=== PATIENT | male | born 1940 | race Caucasian/White ===

== ENCOUNTER → 2017-12-28 10:41 | Outpatient (CLI) | payer MEDICARE, BC, SELFPAY ==
[2017-12-28 10:47] LABS: Microscopic, Urine URINE MICROSCOPIC (MICROSCOPIC)
[2017-12-28 11:07] LABS: Basophils # 0.1 K/mm3 (0-0.2); Basophils % 1.4 % (0.1-2.0); Eosinophils # 0.2 K/mm3 (0.0-0.4); Eosinophils % 3.8 % (0.1-12.0); Hematocrit 46.7 % (42.0-52.0); Hemoglobin 14.3 g/dL (14.1-18.0); Lymphocytes # 1.4 K/mm3 (0.7-4.5); Lymphocytes % 24.3 K/mm3 (10-50); Mean Corpuscular HGB Conc 30.7 g/dL (31.8-35.4); Mean Corpuscular Hemoglobin 27.7 pg (27.0-31.2); Mean Corpuscular Volume 90.3 fl (80-94); Monocytes # 0.5 K/mm3 (0.1-1.0); Monocytes % 7.9 % (1.7-9.3); Neutrophils # 3.6 K/mm3 (1.8-7.8); Neutrophils % 62.7 % (37.0-80.0); Platelet Count 184 K/mm3 (142-424); Red Blood Count 5.16 M/mm3 (4.60-6.20); Red Cell Distribution Width 14.2 % (11.5-17.5); White Blood Count 5.8 K/mm3 (4.8-10.8)
[2017-12-28 11:17] LABS: Appearance,Urine CLEAR (Clear); Bilirubin,Urine Negative (Negative); Blood, Urine Negative (Negative); Color,Urine YELLOW (Yellow); Glucose,Urine (UA) Negative (Negative); Ketones,Urine Negative (Negative); Leukocyte Esterase,Urine Negative (Negative); Nitrate,Urine Negative (Negative); Protein,Urine Negative (Negative); Urobilinogen,Urine 0.2 EU/dl (0.2)
[2017-12-28 11:21] LABS: Creatinine,Urine Random 59 mg/dL (20-320)
[2017-12-28 11:29] LABS: Bacteria,Urine Trace /lpf
[2017-12-28 12:12] LABS: Albumin Level 3.5 gm/dL (3.4-5.0); Blood Urea Nitrogen 19 mg/dL (7-18); Calcium 9.1 mg/dL (8.5-10.1); Carbon Dioxide 25 mmol/L (21.0-32.0); Chloride 107 mmol/L (98-107); Creatinine,Serum 1.59 mg/dL (0.70-1.30); Estimated Glomerular Filt Rate 42 ml/min (>60); GFR (African American) 51 ML/MIN (>60); Glucose 125 mg/dL (74-106); Phosphorous 2.4 mg/dL (2.4-4.9); Sodium 144 mmol/L (136-145); Uric Acid 6.9 mg/dL (2.6-7.2)
[2017-12-29 19:21] LABS: Calcium, Ionized 5.4 mg/dL (4.5-5.6); Parathyroid Hormone Intact 72 pg/mL (15-65)
[2017-12-30 06:34] LABS: Vitamin D 25 Hydroxy 37.2 ng/mL (30.0-100.0)
== END ==
PROVIDERS: Visit Provider Internal Medicine Nephrology
DX: N18.3 Chronic kidney disease, stage 3 (moderate) (principal)
CPT/HCPCS: 36415; 80069; 81001; 82330; 82570; 82652; 83970; 84155; 84550; 85025

== ENCOUNTER → 2018-02-01 13:22 | Outpatient (POV) | payer MEDICARE, BC, SELFPAY | PROVIDERS: Visit Provider Internal Medicine Nephrology | DX: Z00.00 Encounter for general adult medical examination without abnormal findings (principal) ==

== ENCOUNTER → 2019-08-09 14:01 | Outpatient (CLI) | payer MEDICARE, BC, SELFPAY ==
[2019-08-09 15:35] LABS: Albumin Level 3.8 g/dl (3.5-5.0); Anion Gap 11.3 mEq/L (5-15); Blood Urea Nitrogen 22 mg/dl (9-20); Carbon Dioxide 30 mmol/L (22.0-30.0); Chloride 102 mmol/L (98-107); Estimated Glomerular Filt Rate 42 ml/min (>60); GFR (African American) 50 ML/MIN (>60); Glucose 93 mg/dl (74-100); Phosphorous 2.9 mg/dl (2.5-4.5); Potassium 4.3 mmoL/L (3.5-5.1); Sodium 139 mmol/L (136-145); Uric Acid 7.2 mg/dl (3.5-8.5)
[2019-08-11 12:34] LABS: Vitamin D 25 Hydroxy 34.2 ng/mL (30.0-100.0)
== END ==
PROVIDERS: Visit Provider Internal Medicine Nephrology
DX: N18.3 Chronic kidney disease, stage 3 (moderate) (principal)
CPT/HCPCS: 36415; 80069; 82652; 84550

== ENCOUNTER → 2019-08-17 09:20 | Outpatient (POV) | payer MEDICARE, BC, SELFPAY | PROVIDERS: PCP Internal Medicine Nephrology; Visit Provider Internal Medicine Nephrology | DX: Z00.00 Encounter for general adult medical examination without abnormal findings (principal) ==

== ENCOUNTER → 2020-03-12 11:04 | Outpatient (CLI) | payer MEDICARE, BC, SELFPAY ==
[2020-03-12 11:43] LABS: Basophils # 0.1 K/mm3 (0-0.2); Basophils % 1.6 % (0.1-2.0); Eosinophils # 0.2 K/mm3 (0.0-0.4); Eosinophils % 3.7 % (0.1-12.0); Hematocrit 49.1 % (42.0-52.0); Hemoglobin 15.8 g/dL (14.1-18.0); Lymphocytes # 1.6 K/mm3 (0.7-4.5); Lymphocytes % 29.5 % (10-50); Mean Corpuscular HGB Conc 32.3 g/dL (31.8-35.4); Mean Corpuscular Hemoglobin 29.6 pg (27.0-31.2); Mean Corpuscular Volume 91.9 fl (80-94); Mean Platelet Volume 8.7 fl (7.4-10.4); Monocytes # 0.4 K/mm3 (0.1-1.0); Monocytes % 6.6 % (1.7-9.3); Neutrophils # 3.2 K/mm3 (1.8-7.8); Neutrophils % 58.6 % (37.0-80.0); Platelet Count 162 K/mm3 (142-424); Red Blood Count 5.34 M/mm3 (4.60-6.20); Red Cell Distribution Width 13.9 % (11.5-17.5); White Blood Count 5.4 K/mm3 (4.8-10.8)
[2020-03-12 12:14] LABS: Creatinine,Urine Random 61 mg/dL (Not Estab.)
[2020-03-12 12:20] LABS: Microalbumin < 6.000 mg/L (0-16.7)
[2020-03-12 12:37] LABS: Chloride 102 mmol/L (98-107)
[2020-03-12 12:38] LABS: Potassium 4.4 mmoL/L (3.5-5.1); Sodium 140 mmol/L (136-145)
[2020-03-12 12:40] LABS: Alanine Aminotransferase 31 U/L (12-78); Albumin/Globulin Ratio 1.4 (1.1-1.8); Alkaline Phosphatase 85 U/L (38-126); Anion Gap 13.4 mEq/L (5-15); Aspartate Amino Transferase 28 U/L (17-59); Bilirubin,Total 1.2 mg/dl (0.2-1.3); Blood Urea Nitrogen 21 mg/dl (9-20); Carbon Dioxide 29 mmol/L (22.0-30.0); Estimated Glomerular Filt Rate 39 ml/min (>60); GFR (African American) 47 ML/MIN (>60); Globulin 2.8 g/dL (1.3-3.2); Total Protein,Serum 6.8 g/dl (6.3-8.2)
[2020-03-12 12:41] LABS: Calcium 10.2 mg/dl (8.4-10.2); Chol/HDL Ratio 3.8 (1-3.5); Cholesterol 150 mg/dl (140-200); Glucose 111 mg/dl (74-100); HDL Cholesterol 39 mg/dl (40-60); Triglycerides 189 mg/dl (30-150); VLDL Cholesterol 38 mg/dL (0-40)
[2020-03-12 12:52] LABS: Direct LDL Cholesterol 86.47 mg/dL (100-129)
[2020-03-12 12:53] LABS: 25-OH Vitamin D, Total 60.6 ng/mL (30-100)
[2020-03-12 13:11] LABS: Thyroid Stimulating Hormone 2.67 uIU/mL (0.465-4.68)
[2020-03-12 13:32] LABS: Vitamin B12 593 pg/mL (239-931)
[2020-03-12 14:48] LABS: Hemoglobin A1C 6.2 % (4.0-6.0)
== END ==
PROVIDERS: PCP Internal Medicine Cardiovascular Disease; Visit Provider Internal Medicine
DX: I10 Essential (primary) hypertension (principal); R73.9 Hyperglycemia, unspecified
CPT/HCPCS: 36415; 80053; 80061; 82043; 82306; 82570; 82607; 83036; 84443; 85025

== ENCOUNTER → 2020-08-24 09:45 | Outpatient (CLI) | payer MEDICARE, SELFPAY ==
[2020-08-24 10:18] LABS: Basophils # 0.1 K/mm3 (0-0.2); Basophils % 1.4 % (0.1-2.0); Eosinophils # 0.3 K/mm3 (0.0-0.4); Eosinophils % 4.7 % (0.1-12.0); Hematocrit 48.6 % (42.0-52.0); Hemoglobin 15.8 g/dL (14.1-18.0); Lymphocytes # 2.1 K/mm3 (0.7-4.5); Lymphocytes % 28.3 % (10-50); Mean Corpuscular HGB Conc 32.5 g/dL (31.8-35.4); Mean Corpuscular Hemoglobin 29.3 pg (27.0-31.2); Mean Corpuscular Volume 90.2 fl (80-94); Mean Platelet Volume 8.7 fl (7.4-10.4); Monocytes # 0.5 K/mm3 (0.1-1.0); Neutrophils # 4.3 K/mm3 (1.8-7.8); Neutrophils % 58.7 % (37.0-80.0); Platelet Count 167 K/mm3 (142-424); Red Blood Count 5.39 M/mm3 (4.60-6.20); Red Cell Distribution Width 14.2 % (11.5-17.5); White Blood Count 7.3 K/mm3 (4.8-10.8)
[2020-08-24 10:48] LABS: Chloride 106 mmol/L (98-107); Sodium 141 mmol/L (136-145)
[2020-08-24 10:49] LABS: Albumin Level 4.2 g/dl (3.5-5.0); Potassium 4.3 mmoL/L (3.5-5.1)
[2020-08-24 10:51] LABS: Anion Gap 11.3 mEq/L (5-15); Blood Urea Nitrogen 22 mg/dl (9-20); Carbon Dioxide 28 mmol/L (22.0-30.0); Estimated Glomerular Filt Rate 49 ml/min (>60); GFR (African American) 59 ML/MIN (>60); Phosphorous 3.2 mg/dl (2.5-4.5)
[2020-08-24 10:52] LABS: Glucose 106 mg/dl (74-100)
[2020-08-24 11:19] LABS: 25-OH Vitamin D, Total 40.5 ng/mL (30-100)
== END ==
PROVIDERS: Visit Provider Internal Medicine Nephrology
DX: N18.30 Chronic kidney disease, stage 3 unspecified (principal)
CPT/HCPCS: 36415; 80069; 82306; 85025